=== PATIENT | female | born 1985 | race American Indian/Alaskan Native ===

== ENCOUNTER 2016-10-04 | Emergency (ER) | payer OTHER | END 2016-10-04 14:57 | disposition left against medical advice (07) | DX: Z53.21 Procedure and treatment not carried out due to patient leaving prior to being seen by health care provider (principal) ==

== ENCOUNTER 2016-12-10 18:46 | Emergency (ER) | payer OTHER ==
[2016-12-10] MEDS ORDERED: oxyCOD/ACETAMIN 5 MG/325 MG TABLET PO STA (19:48)
[2016-12-10] MEDS ORDERED: oxyCOD/ACETAMIN 5 MG/325 MG TABLET PO ONE (19:50)
== END 2016-12-10 20:00 | disposition home or self-care (01) ==
DX: S69.92XA Unspecified injury of left wrist, hand and finger(s), initial encounter (principal); S63.8X2A Sprain of other part of left wrist and hand, initial encounter; W21.07XA Struck by softball, initial encounter; Y93.64 Activity, baseball; Y92.328 Other athletic field as the place of occurrence of the external cause; J45.909 Unspecified asthma, uncomplicated
CPT/HCPCS: 73130; 99283; A9270

== ENCOUNTER 2016-12-15 15:53 | Emergency (ER) | payer OTHER ==
[2016-12-15] MEDS ORDERED: BUPIVACAINE 0.5% PF 30 ML VIAL ONE (16:08)
== END 2016-12-15 16:55 | disposition home or self-care (01) ==
DX: S61.305A Unspecified open wound of left ring finger with damage to nail, initial encounter (principal); W23.0XXA Caught, crushed, jammed, or pinched between moving objects, initial encounter; Y92.89 Other specified places as the place of occurrence of the external cause; Y99.0 Civilian activity done for income or pay; R03.0 Elevated blood-pressure reading, without diagnosis of hypertension

== ENCOUNTER 2017-01-19 16:54 | Emergency (ER) | payer OTHER | END 2017-01-19 17:52 | disposition left against medical advice (07) | DX: R10.30 Lower abdominal pain, unspecified (principal); Z53.21 Procedure and treatment not carried out due to patient leaving prior to being seen by health care provider ==

== ENCOUNTER 2017-04-05 18:15 | Emergency (ER) | payer OTHER ==
[2017-04-05 18:20] VITALS: BP 123/78
--- NOTE | 2017-04-05 18:42 | ED Physician Documentation ---
PD HPI UPPER EXT INJURY - Stated complaint Stated Complaint: HAND SWELL - Chief complaint Chief Complaint: Ext Problem - History obtained from History obtained from: Patient - History of Present Illness Location: Left, Wrist, Hand Type of injury: Other (hit by a softball last night) Where injury occurred: Home Timing - onset: Yesterday Timing - duration: Days (1) Timing - details: Abrupt onset Pain level max: 5 Pain level now: 5 Improved by: Rest Worsened by: Moving, Palpating Associated symptoms: Swelling, Discolored (bruising). No: Weakness, Numbness, Tingling Contributing factors: No: Anticoagulated, Prior ortho surgery, Prosthetic joint Similar symptoms before: Has not had sx before Recently seen: Not recently seen - Additonal information Additional information: Patient states that she was struck in the left hand by a softball while wearing a mitt yesterday and has pain today. 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: Endometriosis Other Past Medical History: pericarditis - Past Surgical History Past Surgical History: Yes General: Appendectomy Ortho: Other /TRANSMISSION ENGINEER: Hysterectomy - Present Medications Home Medications: Ambulatory Orders Medication Instructions Recorded Confirmed Estrogen 0.25 mg DAILY 12/15/16 04/05/17 - Allergies Allergies/Adverse Reactions: Allergies Allergy/AdvReac Type Severity Reaction Status Date / Time clarithromycin [From Biaxin] Allergy Rash Verified 04/05/17 18:30 ketorolac tromethamine * Allergy resp Verified 04/05/17 18:30 [From Toradol] difficulty metoclopramide HCl * Allergy Hives Verified 04/05/17 18:30 [From Reglan] morphine Allergy Hives Verified 04/05/17 18:30 naproxen Allergy resp dif Verified 04/05/17 18:30 - Social History Does the pt smoke?: No Smoking Status: Never smoker Does the pt drink ETOH?: Yes Does the pt have substance abuse?: No - Immunizations Immunizations are current?: Yes - POLST Patient has POLST: No PD ED PE NORMAL - Vitals Vital signs reviewed: Yes - General General: Alert and oriented X 3, No acute distress - Derm Derm: Warm and dry - Extremities Extremities: Other (L hand - TTP over thenar emminence. No ecchymosis or swelling. Also TTP over volar wrist. No snuffbox tenderness. NVI.) - Neuro Neuro: Alert and oriented X 3 - Psych Psych: Normal mood, Normal affect Results - Vitals Vitals: Vital Signs - 24 hr 04/05/17 18:18 Temperature 36.3 C L Heart Rate 84 Respiratory 16 Rate Blood Pressure 123/78 O2 Saturation 100 Oxygen O2 Source Room air - Rads (name of study) L wrist xray Radiology: Prelim report reviewed, EMP read contemporaneously, See rad report ( normal) PD MEDICAL DECISION MAKING - ED course Complexity details: reviewed results, re-evaluated patient, considered differential, d/w patient ED course: Patient presents to the emergency department with what appears to be hand and wrist contusion. Normal examination other than tenderness. No acute findings on x-ray. Placed in a thumb spica for comfort given her thenar eminence tenderness. Will use Tylenol as needed for pain. Patient counseled regarding signs and symptoms for which I believe and urgent re-evaluation would be necessary. Patient with good understanding of and agreement to plan and is comfortable going home at this time This document was made in part using voice recognition software. While efforts are made to proofread this document, sound alike and grammatical errors may occur. Departure - Departure Disposition: 01 Home, Self Care Clinical Impression: Contusion of hand Qualifiers: Encounter type: initial encounter Laterality: left Qualified Code(s): S60.222A - Contusion of left hand, initial encounter Condition: Good Instructions: ED Contusion Hand Follow-Up: IVANNA DIAMOND [Primary Care Provider] - Within 1 week Comments: You can use motrin or tylenol as needed for pain at home. Return if you worsen. Wear the splint for comfort. Discharge Date/Time: 04/05/17 20:38
[2017-04-05] MEDS ORDERED: ACETAMINOPHEN 325 MG TABLET PO STA (19:24)
[2017-04-05] MEDS ORDERED: ACETAMINOPHEN 325 MG TABLET PO ONE (19:27)
--- NOTE | 2017-04-05 19:37 | XRAY Preliminary Report ---
Exam: XR Wrist 4 View LT IMPRESSION: Normal wrist radiography. [facility] SITE ID: [id number]
--- NOTE | 2017-04-05 20:02 | XRAY Report ---
EXAM: LEFT WRIST RADIOGRAPHY EXAM DATE: 04/05/2017 06:48 p.m. CLINICAL HISTORY: Struck by softball last night. Distal radial as well as scaphoid pain. COMPARISON: Left hand 12/10/2016. TECHNIQUE: 4 views. FINDINGS: Bones: Normal. No fractures or bone lesions. Joints: Normal. No subluxations. Soft Tissues: Normal. No soft tissue swelling. IMPRESSION: Normal wrist radiography. [facility] Referring Provider Line: [phone] SITE ID: [id number]
== END 2017-04-05 20:38 | disposition home or self-care (01) ==
LOC: ED 18:15
DX: S60.222A Contusion of left hand, initial encounter (principal); W21.03XA Struck by baseball, initial encounter; Y92.320 Baseball field as the place of occurrence of the external cause; J45.909 Unspecified asthma, uncomplicated
CPT/HCPCS: 29125; 73110; 99282; 99283; A9270

== ENCOUNTER 2017-06-18 13:07 | Emergency (ER) | payer OTHER ==
[2017-06-18] MEDS ORDERED: ACETAMINOPHEN 1,000 MG/100 ML 100 ML IV STA (15:14)
[2017-06-18] MEDS ORDERED: PROCHLORPERAZINE 10 MG/2 ML VIAL IVP STA (15:14)
[2017-06-18] MEDS ORDERED: diphenhydrAMINE INJ 50 MG/ML VIAL IVP STA ×2 (15:14→16:48)
[2017-06-18] MEDS ORDERED: SODIUM CHLORIDE 0.9% 1,000 ML IV ONE (15:14)
[2017-06-18] MEDS ORDERED: diphenhydrAMINE INJ 50 MG/ML VIAL ONE ×2 (15:23→16:56)
[2017-06-18] MEDS ORDERED: SODIUM CHLORIDE FLUSH 0.9% 10 ML SYRINGE IVP ONE (15:23)
[2017-06-18] MEDS ORDERED: PROCHLORPERAZINE 10 MG/2 ML VIAL ONE (15:23)
[2017-06-18] MEDS ORDERED: ACETAMINOPHEN 1,000 MG/100 ML 100 ML IV ONE (15:23)
--- NOTE | 2017-06-18 16:12 | ED Physician Documentation ---
History of Present Illness - Stated complaint Stated Complaint: MIGRAINE - Chief complaint Chief Complaint: Neuro - Additonal information Additional information: hx from pt 31 f hx migraines has a migraine similar to prior migraines R sided, photophobia NV no fever no neck stiffness no numbness or weakness denies preg Review of Systems Constitutional: denies: Fever, Chills GI: reports: Nausea, Vomiting. denies: Abdominal Pain : reports: Hysterectomy Musculoskeletal: denies: Neck pain, Back pain Neurologic: reports: Headache. 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 - Past Surgical History Past Surgical History: Yes General: Appendectomy Ortho: Other /INTELLIGENCE CLERK: Hysterectomy - Present Medications Home Medications: Ambulatory Orders Medication Instructions Recorded Confirmed Estrogen 0.25 mg DAILY 12/15/16 06/18/17 - Allergies Allergies/Adverse Reactions: Allergies Allergy/AdvReac Type Severity Reaction Status Date / Time clarithromycin [From Biaxin] Allergy Rash Verified 04/05/17 18:30 ketorolac tromethamine * Allergy resp Verified 04/05/17 18:30 [From Toradol] difficulty metoclopramide HCl * Allergy Hives Verified 04/05/17 18:30 [From Reglan] morphine Allergy Hives Verified 04/05/17 18:30 naproxen Allergy resp dif Verified 04/05/17 18:30 - Social History Does the pt smoke?: No Smoking Status: Never smoker Does the pt drink ETOH?: Yes Does the pt have substance abuse?: No - Immunizations Immunizations are current?: Yes - POLST Patient has POLST: No PD ED PE NORMAL - Vitals Vital signs reviewed: Yes - General General: Alert and oriented X 3 - HEENT HEENT: PERRL (photophobic, light caused vomiting), EOMI, Other (no TA TTP, globes soft) - Neck Neck: Supple, no meningeal sign - Cardiac Cardiac: RRR - Respiratory Respiratory: No respiratory distress, Clear bilaterally - Abdomen Abdomen: Soft, Non tender - Derm Derm: Normal color - Neuro Neuro: Alert and oriented X 3, body recall instructor 2-12 intact, No motor deficit, No sensory deficit, Normal speech Results - Vitals Vitals: Vital Signs - 24 hr 06/18/17 06/18/17 06/18/17 13:18 16:21 18:11 Temperature 36.6 C 37.0 C Heart Rate 109 H 95 81 Respiratory 17 15 13 Rate Blood Pressure 133/90 H 109/58 L 132/69 H O2 Saturation 99 98 97 Oxygen O2 Source Room air PD MEDICAL DECISION MAKING - ED course ED course: pt txed with ofirmev compazine benadryl and ativan + IVF and felt better Departure - Departure Disposition: 01 Home, Self Care Clinical Impression: Migraine Qualifiers: Migraine type: other Status migrainosus presence: without status migrainosus Intractability: not intractable Qualified Code(s): G43.809 - Other migraine, not intractable, without status migrainosus Instructions: ED Headache Migraine Follow-Up: IVANNA DIAMOND [Primary Care Provider] - (to recheck your blood pressure - it was high today) Forms: Activity restrictions
[2017-06-18] MEDS ORDERED: LORazepam 2 MG/ML SYRINGE IVP STA (16:48)
[2017-06-18] MEDS ORDERED: LORazepam 2 MG/ML SYRINGE ONE (16:56)
[2017-06-18 18:12] VITALS: BP 132/69
== END 2017-06-18 18:25 | disposition home or self-care (01) ==
LOC: ED 13:07
DX: G43.809 Other migraine, not intractable, without status migrainosus (principal); R03.0 Elevated blood-pressure reading, without diagnosis of hypertension
CPT/HCPCS: 96374; 96375; 96376; 99283; 99284; J0131; J2060

== ENCOUNTER 2017-11-20 07:48 | Outpatient (CLI) | payer OTHER ==
--- NOTE | 2017-11-20 13:13 | MRI Preliminary Report ---
Exam: MRI ANKLE RT W/O IMPRESSION: 1. Increased susceptibility artifact at the distal fibula mildly limits evaluation of the region. 2. Moderate peroneus longus and brevis tendinopathy. Mild distortion, irregularity, and subtle hyperi ntense signal at the peroneus brevis tendon distal to the fibular tip may be postsurgical versus smal l partial thickness tear. 3. Mild thickening of the anterior and posterior talofibular ligaments, similar and likely due to old trauma. 4. Calcaneofibular ligament obscured by artifact. Mild thickening of the distal portion is similar to previous. 5. Minimal tibiotalar and subtalar joint fusions. [facility] SITE ID: [id number]
--- NOTE | 2017-11-20 17:47 | MRI Report ---
EXAM: RIGHT ANKLE/HINDFOOT MRI WITHOUT CONTRAST EXAM DATE: 11/20/2017 08:35 AM. CLINICAL HISTORY: Pain in unspecified ankle and joints of unspecified. COMPARISON: None. TECHNIQUE: Multiplanar, multisequence T1-weighted and fluid-sensitive sequences of the ankle/hindfoot without contrast. Other: None. FINDINGS: Bones: Foci of susceptibility artifact at the distal fibula increased from previous. This mildly limi ts evaluation of the region. Mild flattening again noted at the posterior aspect distal fibula. No fracture or bone lesion. Articular Cartilage: Unremarkable. Ligaments: Anterior and posterior tibiofibular ligaments are intact. Mild thickening at the anterior and posterior talofibular ligaments, similar. Evaluation of the calcaneofibular ligament mildly limit ed due to susceptibility artifact. Mild thickening of the distal fibers partially visualized. The deep and superficial deltoid and spring ligaments are intact. Anterior Tendons: The tibialis anterior, extensor hallucis longus, and extensor digitorum longus tend ons are unremarkable. Medial Tendons: The tibialis posterior, flexor digitorum longus, and flexor hallucis longus tendons a re unremarkable. Lateral Tendons: Moderate thickening of the peroneus longus and brevis tendons at the fibular tip, in creased from previous. Mild distortion and irregularity of the peroneus longus brevis with ill-define d hyperintense signal along the posterior aspect of the central fibers involving a region measuring 1 cm in length (axial images 17). Small amount of fluid in the tendon sheath. Achilles Tendon: The Achilles tendon is unremarkable. Musculature: No edema or fatty atrophy. Other: Minimal tibiotalar and subtalar joint effusions. The contents of the sinus tarsi and tarsal tu nnel are unremarkable. No plantar fasciitis. The subcutaneous tissues are unremarkable. IMPRESSION: 1. Increased susceptibility artifact at the distal fibula mildly limits evaluation of the region. 2. Moderate peroneus longus and brevis tendinopathy. Mild distortion, irregularity, and subtle hyperi ntense signal at the peroneus brevis tendon distal to the fibular tip may be postsurgical versus smal l partial-thickness tear. 3. Mild thickening of the anterior and posterior talofibular ligaments, similar and likely due to old trauma. 4. Calcaneofibular ligament obscured by artifact. Mild thickening of the distal portion is similar to previous. 5. Minimal tibiotalar and subtalar joint effusions. [facility] Referring Provider Line: [phone] SITE ID: [id number]
== END 2017-11-20 07:49 | disposition home or self-care (01) ==
LOC: DI 07:48
PROVIDERS: ATTEND Physician Assistant Medical
DX: M67.971 Unspecified disorder of synovium and tendon, right ankle and foot (principal); M25.471 Effusion, right ankle

== ENCOUNTER 2017-12-05 19:06 | Emergency (ER) | payer OTHER ==
--- NOTE | 2017-12-05 21:02 | ED Physician Documentation ---
PD HPI URI - Stated complaint Stated Complaint: SORE THROAT - Chief complaint Chief Complaint: Heent - History obtained from History obtained from: Patient - History of Present Illness Timing - onset: Yesterday Timing duration: Days (1-2) Timing details: Abrupt onset, Still present Associated symptoms: Nasal congestion, Sore throat, Swollen nodes. No: Fever, Chest pain, Dyspnea, NVD Recently seen: Not recently seen Review of Systems Constitutional: reports: Chills, Myalgias. 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 - Past Surgical History Past Surgical History: Yes General: Appendectomy Ortho: Other /SENIOR BRANCH MANAGER: Hysterectomy - Present Medications Home Medications: Ambulatory Orders Medication Instructions Recorded Confirmed Estrogen 0.25 mg PO DAILY 12/15/16 06/18/17 Dexamethasone [Decadron] 4 mg PO DAILY #5 tablet 12/05/17 Tramadol HCl 50 mg PO Q6H PRN #15 tablet 12/05/17 - Allergies Allergies/Adverse Reactions: Allergies Allergy/AdvReac Type Severity Reaction Status Date / Time clarithromycin [From Biaxin] Allergy Rash Verified 12/05/17 19:19 ketorolac tromethamine * Allergy resp Verified 12/05/17 19:19 [From Toradol] difficulty metoclopramide HCl * Allergy Hives Verified 12/05/17 19:19 [From Reglan] morphine Allergy Hives Verified 12/05/17 19:19 naproxen Allergy resp dif Verified 12/05/17 19:19 - Social History Does the pt smoke?: No Smoking Status: Never smoker Does the pt drink ETOH?: Yes Does the pt have substance abuse?: No - Immunizations Immunizations are current?: Yes - POLST Patient has POLST: No PD ED PE NORMAL - Vitals Vital signs reviewed: Yes - General General: Alert and oriented X 3, No acute distress, Well developed/nourished - HEENT HEENT: Pharynx benign (minimal redness in pharynx without exudate nor peritonsillar swelling. ) - Neck Neck: Supple, no meningeal sign, No adenopathy - Cardiac Cardiac: RRR, No murmur - Respiratory Respiratory: Clear bilaterally - Abdomen Abdomen: Soft, Non tender - Derm Derm: Normal color, Warm and dry - Neuro Neuro: Alert and oriented X 3, No motor deficit, Normal speech Results - Vitals Vitals: Oxygen O2 Source Room air - Labs Labs: Microbiology 12/05/17 21:00 Group A Strep Throat Culture - Final Throat MIXED OROPHARYNGEAL AVELINA PRESENT. NO BETA STREP PRESENT IN CULTURE. Laboratory Tests 12/05/17 21:00 Group A Strep Rapid Negative PD MEDICAL DECISION MAKING - ED course Complexity details: reviewed results, considered differential (low Centor score and negative rapid strep. Appears viral. ), d/w patient Departure - Departure Disposition: Home, Self Care Clinical Impression: Viral pharyngitis Condition: Stable Record reviewed to determine appropriate education?: Yes Instructions: ED Pharyngitis Viral Follow-Up: CHIKIS CASTANO PA-C [Primary Care Provider] - Prescriptions: Dexamethasone [Decadron] 4 mg PO DAILY #5 tablet Tramadol HCl 50 mg PO Q6H PRN #15 tablet PRN Reason: Pain Comments: Your rapid strep test is negative. It does not look suspicious enough for strep at this point so we will await cultures to see more definitively if it is strep. The rapid strep test is about 85-90% accurate. Meanwhile we will presume a viral illness and use Tylenol or ibuprofen if needed for pains. Decadron anti-inflammatory daily for 5 more days. Add pain medicine if needed. Drink lots of fluids. Presumably this will last about 5 or 6 days if it is a viral illness. Discharge Date/Time: 12/05/17 21:38
[2017-12-05] MEDS ORDERED: HYDROcod/ACET 5/325 Prepack 6 PO STA (21:24)
[2017-12-05] MEDS ORDERED: ACETAMINOPHEN 325 MG TABLET PO STA (21:24)
[2017-12-05] MEDS ORDERED: DEXAMETHASONE 10 MG/ML VIAL PO STA (21:24)
[2017-12-05 21:41] VITALS: BP 126/87
== END 2017-12-05 21:38 | disposition home or self-care (01) ==
LOC: ED 19:06
DX: J02.8 Acute pharyngitis due to other specified organisms (principal); B97.89 Other viral agents as the cause of diseases classified elsewhere
CPT/HCPCS: 87070; 87430; 99283; A9270

== ENCOUNTER 2018-09-10 21:06 | Emergency (ER) | payer OTHER ==
--- NOTE | 2018-09-10 22:18 | ED Physician Documentation ---
PD HPI CHEST PAIN - Stated complaint Stated Complaint: CP/L ARM TINGLING - Chief complaint Chief Complaint: General - History obtained from History obtained from: Patient - History of Present Illness Timing - onset: Today (this morning) Timing - onset during: Rest (at work but at rest) Timing - details: Intermittant Pain level now: 0 Quality: Aching, Pain Location: Substernal Radiation: Left upper extremity Improved by: Nothing Worsened by: Other (no exacerbating factors) Associated symptoms: Nausea. No: Shortness of air, Diaphoresis, Vomiting, Palpitations Similar symptoms before: Has not had sx before Recently seen: Not recently seen - Additional information Additional information: c/o chest pain, intermittent/episodic since this morning while at work. No apparent inciting, exacerbating, or ameliorating factors. This evening, the episodes began radiating to LUE. She says she has had similar episodes in the past and was told she had pericarditis. Review of Systems Constitutional: denies: Fever Cardiac: reports: Chest pain / pressure. denies: Palpitations, Pedal edema, Calf pain Respiratory: denies: Dyspnea GI: reports: Nausea. 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 : None HEENT: None Psych: None Musculoskeletal: None Derm: None - Past Surgical History Past Surgical History: Yes General: Appendectomy Ortho: Other /AUTOMOBILE DRIVERS: Hysterectomy HEENT: Tonsil/Adenoidectomy - Present Medications Home Medications: Ambulatory Orders Medication Instructions Recorded Confirmed Estrogen 0.25 mg PO DAILY 12/15/16 06/18/17 Dexamethasone [Decadron] 4 mg PO DAILY #5 tablet 12/05/17 Tramadol HCl 50 mg PO Q6H PRN #15 tablet 12/05/17 - Allergies Allergies/Adverse Reactions: Allergies Allergy/AdvReac Type Severity Reaction Status Date / Time clarithromycin [From Biaxin] Allergy Rash Verified 09/10/18 21:12 ketorolac tromethamine * Allergy resp Verified 09/10/18 21:12 [From Toradol] difficulty metoclopramide HCl * Allergy Hives Verified 09/10/18 21:12 [From Reglan] morphine Allergy Hives Verified 09/10/18 21:12 naproxen Allergy resp dif Verified 09/10/18 21:12 - Social History Does the pt smoke?: No Smoking Status: Never smoker Does the pt drink ETOH?: Yes Does the pt have substance abuse?: No - Immunizations Immunizations are current?: Yes - POLST Patient has POLST: No PD ED PE NORMAL - Vitals Vital signs reviewed: Yes - General General: Alert and oriented X 3, No acute distress, Well developed/nourished - HEENT HEENT: Moist mucous membranes - Neck Neck: Supple, no meningeal sign - Cardiac Cardiac: RRR, No murmur, No gallop, No rub - Respiratory Respiratory: No respiratory distress, Clear bilaterally - Extremities Extremities: No edema Results - Vitals Vitals: Vital Signs - 24 hr 09/10/18 09/10/18 21:09 23:24 Temperature 36.5 C Heart Rate 89 75 Respiratory 16 13 Rate Blood Pressure 150/86 H 120/87 H O2 Saturation 100 99 Oxygen O2 Source Room air - EKG (time done) No standard instances Rate: Rate (enter#) (79) Rhythm: NSR [place]: Normal Intervals: Normal [place] QRS: Normal Ischemia: Normal ST segments - Labs Labs: Laboratory Tests 09/10/18 09/10/18 09/10/18 22:39 22:39 22:39 WBC 5.7 RBC 4.26 Hgb 12.9 Hct 37.9 MCV 89.0 MCH 30.2 MCHC 33.9 RDW 12.4 Plt Count 160 MPV 8.9 Neut # (Auto) 3.2 Lymph # (Auto) 1.9 [place] # (Auto) 0.5 Eos # (Auto) 0.1 Baso # (Auto) 0.0 Absolute Nucleated RBC 0.00 Nucleated RBC % 0.0 ESR 10 Sodium 134 L Potassium 3.5 Chloride 105 Carbon Dioxide 24 Anion Gap 5.0 L BUN 12 Creatinine 0.5 Estimated GFR (MDRD) 142 Glucose 97 Calcium 8.9 Total Creatine Kinase 35 CK-MB (CK-2) Troponin I 09/10/18 22:39 WBC RBC Hgb Hct MCV MCH MCHC RDW Plt Count MPV Neut # (Auto) Lymph # (Auto) [place] # (Auto) Eos # (Auto) Baso # (Auto) Absolute Nucleated RBC Nucleated RBC % ESR Sodium Potassium Chloride Carbon Dioxide Anion Gap BUN Creatinine Estimated GFR (MDRD) Glucose Calcium Total Creatine Kinase CK-MB (CK-2) 0.5 L Troponin I < 0.04 PD MEDICAL DECISION MAKING - ED course Complexity details: reviewed results, re-evaluated patient, considered differential, d/w patient Departure - Departure Disposition: 01 Home, Self Care Clinical Impression: Chest pain Condition: Good Instructions: ED Chest Pain Atypical Unkn Cause Follow-Up: CHIKIS CASTANO PA-C [Primary Care Provider] - Discharge Date/Time: 09/11/18 00:00
[2018-09-10 22:44] LABS: BASOPHILS % (AUTO) 0.5 %; EOSINOPHILS # (AUTO) 0.1 10^3/uL (0.0-0.7); EOSINOPHILS % (AUTO) 2.3 %; HGB - HEMOGLOBIN 12.9 g/dL (12.0-16.0); LYMPHOCYTES # (AUTO) 1.9 10^3/uL (1.5-3.5); LYMPHOCYTES % (AUTO) 33.2 %; MEAN CORPUSCULAR HEMOGLOBIN 30.2 pg (27.0-31.0); MEAN CORPUSCULAR HGB CONC 33.9 g/dL (32.0-36.0); MEAN PLATELET VOLUME 8.9 fL (7.9-10.8); MONOCYTES # (AUTO) 0.5 10^3/uL (0.0-1.0); MONOCYTES % (AUTO) 8.2 %; NEUTROPHILS # (AUTO) 3.2 10^3/uL (1.5-6.6); NEUTROPHILS % (AUTO) 55.8 %; PLT - PLATELET COUNT 160 10^3/uL (130-450); RED BLOOD COUNT 4.26 10^6/uL (4.20-5.40); RED CELL DISTRIBUTION WIDTH 12.4 % (12.0-15.0); WHITE BLOOD COUNT 5.7 x10^3/uL (4.8-10.8)
[2018-09-10 22:55] LABS: CALCIUM 8.9 mg/dL (8.5-10.3); CREATININE 0.5 mg/dL (0.4-1.0)
[2018-09-10 23:01] LABS: TROPONIN I < 0.04 ng/mL (<0.49)
[2018-09-10 23:03] LABS: CREATINE KINASE MB 0.5 ng/mL (0.6-6.3)
[2018-09-10 23:25] VITALS: BP 120/87
== END 2018-09-11 | disposition home or self-care (01) ==
LOC: ED 21:06
DX: R07.9 Chest pain, unspecified (principal)
CPT/HCPCS: 36415; 80048; 82550; 82553; 84484; 85025; 85651; 93005; 99283

== ENCOUNTER 2019-01-01 22:24 | Emergency (ER) | payer OTHER ==
--- NOTE | 2019-01-01 22:36 | ED Physician Documentation ---
PD HPI HEAD INJURY - Stated complaint Stated Complaint: JAW PX - Chief complaint Chief Complaint: Laceration - History obtained from History obtained from: Patient - History of Present Illness Mechanism of head injury: Fell (struck chin on bed post and had hyperextension of the neck. Pain in mandible and hurts to open mouth. Denies malalignment of the teeth. Also has pain in neck as it was hyperextended with the impact. No focal weakness nor numbness.) Where head injury occurred: Home Timing - onset: How many hours ago (1), Today Location of injury: Front (chin, with small laceration there) Quality of pain: Pain (mandible, lateral jaw and neck) Associated symptoms: No: LOC, AMS, Nausea / vomiting Symptoms worsen with: Movement Similar symptoms before: Has not had sx before Recently seen: Not recently seen Review of Systems Throat: denies: Dental pain / toothache, Sore throat Cardiac: denies: Chest pain / pressure, Palpitations GI: denies: Abdominal Pain, Nausea, Vomiting Skin: reports: Laceration (s) (chin) Musculoskeletal: reports: Neck pain. denies: Back pain Neurologic: denies: Focal weakness, Numbness, Altered mental status PD PAST MEDICAL HISTORY - Past Medical History Cardiovascular: Other Respiratory: Asthma, Shortness of breath Neuro: Migraines Endocrine/Autoimmune: None GI: None ACCOUNTING SYSTEMS ANALYST: Endometriosis : None HEENT: None Psych: None Musculoskeletal: None Derm: None - Past Surgical History Past Surgical History: Yes General: Appendectomy Ortho: Other /ACCOUNTING SYSTEMS ANALYST: Hysterectomy HEENT: Tonsil/Adenoidectomy - Present Medications Home Medications: Ambulatory Orders Medication Instructions Recorded Confirmed Estrogen 0.25 mg PO DAILY 12/15/16 06/18/17 Dexamethasone [Decadron] 4 mg PO DAILY #5 tablet 12/05/17 Tramadol HCl 50 mg PO Q6H PRN #15 tablet 12/05/17 Naproxen 500 mg PO BID #20 tablet 01/02/19 Oxycodone HCl/Acetaminophen 1 - 2 each PO Q6H PRN #14 tablet 01/02/19 [Percocet 5-325 mg Tablet] - Allergies Allergies/Adverse Reactions: Allergies Allergy/AdvReac Type Severity Reaction Status Date / Time clarithromycin [From Biaxin] Allergy Rash Verified 01/01/19 22:33 ketorolac tromethamine * Allergy resp Verified 01/01/19 22:33 [From Toradol] difficulty metoclopramide HCl * Allergy Hives Verified 01/01/19 22:33 [From Reglan] morphine Allergy Hives Verified 01/01/19 22:33 naproxen Allergy resp dif Verified 01/01/19 22:33 - Social History Does the pt smoke?: No Smoking Status: Never smoker Does the pt drink ETOH?: Yes Does the pt have substance abuse?: No - Immunizations Immunizations are current?: Yes - POLST Patient has POLST: No PD ED PE NORMAL - Vitals Vital signs reviewed: Yes - General General: Alert and oriented X 3, Well developed/nourished, Other (She appears in pain and is having minimal range of motion of the jaw due to pain. She denies malalignment. There is no dental fractures. There is a small 1 cm laceration on the underside of the chin with edges close together. No foreign body is seen. There is no active bleeding. There is tenderness at the mental area of the jaw and chin. There is no tenderness at the TMJ areas per se. The corner of the mandible and the condylar areas are somewhat tender. The maxillary part of the feet face is not tender. The neck shows some tenderness in the mid to lower cervical area close to midline.) - HEENT HEENT: Dentition benign - Neck Neck: Supple, no meningeal sign - Derm Derm: Normal color, Warm and dry - Neuro Neuro: Alert and oriented X 3, No motor deficit, No sensory deficit, Normal speech Results - Vitals Vitals: Vital Signs - 24 hr 01/01/19 01/02/19 22:30 00:39 Temperature 36.8 C 36.5 C Heart Rate 76 71 Respiratory 17 15 Rate Blood Pressure 148/88 H 121/74 O2 Saturation 100 98 Oxygen O2 Source Room air - Rads (name of study) maxilofacial and cervical CTs Radiology: Prelim report reviewed (no fractures. ), EMP read contemporaneously, See rad report PD MEDICAL DECISION MAKING - ED course Complexity details: reviewed results (maxilofacial CT and cervical CT without fractures.), considered differential, d/w patient Departure - Departure Disposition: 01 Home, Self Care Clinical Impression: Chin laceration Qualifiers: Encounter type: initial encounter Qualified Code(s): S01.81XA - Laceration without foreign body of other part of head, initial encounter Facial contusion Qualifiers: Encounter type: initial encounter Qualified Code(s): S00.83XA - Contusion of other part of head, initial encounter Cervical strain, acute Qualifiers: Encounter type: initial encounter Qualified Code(s): S16.1XXA - Strain of muscle, fascia and tendon at neck level, initial encounter Condition: Stable Record reviewed to determine appropriate education?: Yes Instructions: ED Contusion Face Prescriptions: Naproxen 500 mg PO BID #20 tablet Oxycodone HCl/Acetaminophen [Percocet 5-325 mg Tablet] 1 - 2 each PO Q6H PRN #14 tablet PRN Reason: pain Comments: Soft food and chewing for couple of days until improved. I would anticipate improvement over several days to a week at most. Use some anti-inflammatories such as naproxen or ibuprofen twice daily. Add Tylenol or Percocet if needed for pain. Again recheck if not improving over several days to week. There are no fractures seen on imaging.Allow the Steri-Strips to fall off the on their own from the chin after several days and then just clean it with soap and water and use ointment. Discharge Date/Time: 01/02/19 00:39
[2019-01-01] MEDS: HYDROmorphone 1 MG/ML CARPUJECT IM STA (22:59)
[2019-01-02] MEDS: oxyCODONE/ACET 5/325 Prepack 4 PO STA (00:14)
--- NOTE | 2019-01-02 00:24 | CT Report ---
Reason: fall and struck chin, with neck pain Procedure Date: 01/01/2019 Accession Number: [id number] / [id number] Procedure: CT - CERVICAL SPINE WO CPT Code: FULL RESULT: EXAM: CT CERVICAL SPINE WITHOUT CONTRAST DATE: 01/01/2019 11:29 PM. HISTORY: Fall and struck chin, with neck pain. COMPARISONS: None. TECHNIQUE: Thin-section axial images were acquired of the cervical spine without contrast. Post-processing: Coronal and sagittal reformats. Other: None. In accordance with CT protocol optimization, one or more of the following dose reduction techniques were utilized for this exam: automated exposure control, adjustment of mA and/or KV based on patient size, or use of iterative reconstructive technique. FINDINGS: Alignment: No scoliosis or spondylolisthesis. Bones: No fracture or bone lesion. Interspace Levels/Facets: C1-C2: Unremarkable. C2-C3: Unremarkable. C3-C4: Unremarkable. C4-C5: Unremarkable. C5-C6: Unremarkable. C6-C7: Unremarkable. C7-T1: Unremarkable. Musculature: Normal. No fatty atrophy. Other: The paravertebral and prevertebral soft tissues are unremarkable. The lung apices are clear. IMPRESSION: Normal cervical spine CT. RADIA
--- NOTE | 2019-01-02 00:25 | CT Report ---
Reason: fell and struck chin, pain in jaw Procedure Date: 01/01/2019 Accession Number: [id number] / [id number] Procedure: CT - MAXILLOFACIAL WO CPT Code: FULL RESULT: EXAM: CT MAXILLOFACIAL WITHOUT CONTRAST EXAM DATE: 01/01/2019 11:26 PM. CLINICAL HISTORY: Fell and struck chin, pain in jaw. COMPARISONS: None. TECHNIQUE: Thin-section axial images were acquired of the face without contrast. Post-processing: Coronal and sagittal reformats. Other: None. In accordance with CT protocol optimization, one or more of the following dose reduction techniques were utilized for this exam: automated exposure control, adjustment of mA and/or KV based on patient size, or use of iterative reconstructive technique. FINDINGS: Soft Tissue: The infratemporal fossa and parapharyngeal spaces are unremarkable. Orbits: Symmetric and unremarkable. Bones: No fracture or bone lesion. Temporomandibular Joints: The temporomandibular joints are symmetric and normally located. Sinuses: Normal. No mucosal thickening or fluid levels. Other: None. IMPRESSION: Normal maxillofacial CT. RADIA
[2019-01-02 00:39] VITALS: BP 121/74
== END 2019-01-02 00:39 | disposition home or self-care (01) ==
LOC: ED 22:24
DX: S01.81XA Laceration without foreign body of other part of head, initial encounter (principal); S16.1XXA Strain of muscle, fascia and tendon at neck level, initial encounter; W18.30XA Fall on same level, unspecified, initial encounter; W22.09XA Striking against other stationary object, initial encounter; Y92.009 Unspecified place in unspecified non-institutional (private) residence as the place of occurrence of the external cause
CPT/HCPCS: 70486; 72125; 96372; 99283

== ENCOUNTER 2019-06-30 13:25 | Emergency (ER) | payer OTHER ==
[2019-06-30 13:34] VITALS: BP 136/89
--- NOTE | 2019-06-30 14:07 | ED Physician Documentation ---
PD HPI UPPER EXT INJURY - Stated complaint Stated Complaint: ARM PX/GLF - Chief complaint Chief Complaint: Ext Problem - History obtained from History obtained from: Patient - History of Present Illness Location: Right, Shoulder Type of injury: Fall Where injury occurred: Home Timing - onset: Yesterday Timing - details: Gradual onset Pain level max: 9 Pain level now: 9 Improved by: Rest, Ice, Immobilization Worsened by: Moving, Palpating Associated symptoms: No: Weakness, Numbness, Tingling Similar symptoms before: Has not had sx before Recently seen: Not recently seen Review of Systems Constitutional: denies: Fever, Chills GI: denies: Vomiting : denies: Now EGA Skin: denies: Rash Musculoskeletal: denies: Neck pain, Back pain Neurologic: denies: Head injury PD PAST MEDICAL HISTORY - Past Medical History Past Medical History: Yes Cardiovascular: Other Respiratory: Asthma, Shortness of breath Neuro: Migraines Endocrine/Autoimmune: None GI: None MEDICAL TECHNICAL WRITER: Endometriosis : None HEENT: None Psych: None Musculoskeletal: None Derm: None - Past Surgical History Past Surgical History: Yes General: Appendectomy Ortho: Other /MEDICAL TECHNICAL WRITER: Hysterectomy HEENT: Tonsil/Adenoidectomy - Present Medications Home Medications: Ambulatory Orders Medication Instructions Recorded Confirmed Estrogen 0.25 mg PO DAILY 12/15/16 06/18/17 Cyclobenzaprine [Flexeril] 10 mg PO TID PRN #20 tablet 06/30/19 Oxycodone HCl/Acetaminophen 1 - 2 each PO Q6H PRN #14 tablet 06/30/19 [Percocet 5-325 mg Tablet] - Allergies Allergies/Adverse Reactions: Allergies Allergy/AdvReac Type Severity Reaction Status Date / Time clarithromycin [From Biaxin] Allergy Rash Verified 06/30/19 13:51 ketorolac tromethamine * Allergy resp Verified 06/30/19 13:51 [From Toradol] difficulty metoclopramide HCl * Allergy Hives Verified 06/30/19 13:51 [From Reglan] morphine Allergy Hives Verified 06/30/19 13:51 naproxen Allergy resp dif Verified 06/30/19 13:51 - Social History Does the pt smoke?: No Smoking Status: Never smoker Does the pt drink ETOH?: Yes Does the pt have substance abuse?: No - Immunizations Immunizations are current?: Yes - POLST Patient has POLST: No PD ED PE NORMAL - Vitals Vital signs reviewed: Yes - General General: Alert and oriented X 3, No acute distress - HEENT HEENT: Moist mucous membranes - Neck Neck: Supple, no meningeal sign, No bony TTP - Derm Derm: Warm and dry - Extremities Extremities: Other (Diffuse tenderness about the rotator cuff of the right shoulder. Neurovascularly intact. Pain with external rotation. Feels better with internal rotation. Pain with abduction as well.) - Neuro Neuro: Alert and oriented X 3 Results - Vitals Vitals: Vital Signs - 24 hr 06/30/19 13:31 Temperature 36.4 C L Heart Rate 78 Respiratory 18 Rate Blood Pressure 136/89 H O2 Saturation 100 Oxygen O2 Source Room air - Rads (name of study) Right shoulder x-ray Radiology: Prelim report reviewed, EMP read contemporaneously, See rad report (Normal) PD MEDICAL DECISION MAKING - ED course Complexity details: reviewed results, re-evaluated patient, considered differential, d/w patient ED course: 33-year-old female with what appears to be a right shoulder injury, likely rotator cuff injury. Will continue gentle stretching. Will have her placed on muscle relaxants and pain medication. Placed in a sling for comfort. Patient counseled regarding signs and symptoms for which I believe and urgent re- evaluation would be necessary. Patient with good understanding of and agreement to plan and is comfortable going home at this time This document was made in part using voice recognition software. While efforts are made to proofread this document, sound alike and grammatical errors may occur. Departure - Departure Disposition: 01 Home, Self Care Clinical Impression: Rotator cuff (capsule) sprain Qualifiers: Encounter type: initial encounter Laterality: right Qualified Code(s): S43.421A - Sprain of right rotator cuff capsule, initial encounter Condition: Good Instructions: ED Tendinitis Rotator Cuff Follow-Up: your,doctor in 1 week [Other] Prescriptions: Cyclobenzaprine [Flexeril] 10 mg PO TID PRN #20 tablet PRN Reason: Spasms Oxycodone HCl/Acetaminophen [Percocet 5-325 mg Tablet] 1 - 2 each PO Q6H PRN #14 tablet PRN Reason: pain Comments: Return if you worsen. Continue stretching as we discussed today. You can try a shoulder brace as well as this may help your pain. Follow up with your doctor for further care. Do not drink alcohol or drive while on narcotic pain medicine. Note that many narcotic pain relievers also contain tylenol/acetaminophen. Please ensure that your total dose of acetaminophen from all sources does not exceed 3 grams (3000mg) per day. You may constipated on this medication, take a stool softener such as "Colace" twice a day while you are on it. Also recommend a gnum-gjz-wrpjcfk laxative such as senna or MiraLAX any day that you do not have a bowel movement. If you received narcotic pain medication in the emergency department, do not drive or operate machinery for the next 24 hours. Discharge Date/Time: 06/30/19 14:14
--- NOTE | 2019-06-30 14:16 | XRAY Report ---
Reason: r shoulder pain Procedure Date: 06/30/2019 Accession Number: [id number] / [id number] Procedure: XR - Shoulder 3 View RT CPT Code: FULL RESULT: EXAM: RIGHT SHOULDER RADIOGRAPHY. EXAM DATE: 06/30/2019 01:51 PM. CLINICAL HISTORY: Right shoulder pain. COMPARISON: None. TECHNIQUE: 3 views. FINDINGS: Bones: Normal. No fracture or bone lesion. Joints: The glenohumeral and acromioclavicular joints are normal. Soft tissues: The visualized hemithorax is unremarkable. No soft tissue swelling. IMPRESSION: Normal shoulder radiography. [facility]
== END 2019-06-30 14:14 | disposition home or self-care (01) ==
LOC: ED 13:25
DX: S43.421A Sprain of right rotator cuff capsule, initial encounter (principal); W01.0XXA Fall on same level from slipping, tripping and stumbling without subsequent striking against object, initial encounter; Y92.009 Unspecified place in unspecified non-institutional (private) residence as the place of occurrence of the external cause
CPT/HCPCS: 99283; 99284

== ENCOUNTER 2019-08-06 19:08 | Emergency (ER) | payer OTHER ==
[2019-08-06 20:44] LABS: BASOPHILS % (AUTO) 0.4 %; EOSINOPHILS # (AUTO) 0.1 10^3/uL (0.0-0.7); EOSINOPHILS % (AUTO) 1.4 %; HGB - HEMOGLOBIN 14.2 g/dL (12.0-16.0); MEAN CORPUSCULAR HEMOGLOBIN 30.2 pg (27.0-31.0); MEAN CORPUSCULAR HGB CONC 34.2 g/dL (32.0-36.0); MEAN CORPUSCULAR VOLUME 88.3 fL (81.0-99.0); MEAN PLATELET VOLUME 10.9 fL (7.9-10.8); MONOCYTES # (AUTO) 0.4 10^3/uL (0.0-1.0); MONOCYTES % (AUTO) 7.7 %; NEUTROPHILS # (AUTO) 3.1 10^3/uL (1.5-6.6); NEUTROPHILS % (AUTO) 55.1 %; PLT - PLATELET COUNT 192 10^3/uL (130-450); RED CELL DISTRIBUTION WIDTH 11.1 % (12.0-15.0); WHITE BLOOD COUNT 5.6 x10^3/uL (4.8-10.8)
--- NOTE | 2019-08-06 20:44 | ED Physician Documentation ---
History of Present Illness - Stated complaint Stated Complaint: SOA - Chief complaint Chief Complaint: Resp - History obtained from History obtained from: Patient - History of Present Illness Timing: How many days ago (5) Pain level max: 0 Pain level now: 0 Improved by: nothing Worsened by: nothing - Additonal information Additional information: 33 year old female with neck swelling, loss of voice. ongoing for the past 5 days or so. states feels cold as well. has had intermittent dyspnea on exertion for months. 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 : None HEENT: None Psych: None Musculoskeletal: None Derm: None - Past Surgical History Past Surgical History: Yes General: Appendectomy Ortho: Other /STRAP BUCKLER MACHINE: Hysterectomy HEENT: Tonsil/Adenoidectomy - Present Medications Home Medications: Ambulatory Orders Medication Instructions Recorded Confirmed Estrogen 0.25 mg PO DAILY 12/15/16 06/18/17 Cyclobenzaprine [Flexeril] 10 mg PO TID PRN #20 tablet 06/30/19 Oxycodone HCl/Acetaminophen 1 - 2 each PO Q6H PRN #14 tablet 06/30/19 [Percocet 5-325 mg Tablet] - Allergies Allergies/Adverse Reactions: Allergies Allergy/AdvReac Type Severity Reaction Status Date / Time clarithromycin [From Biaxin] Allergy Rash Verified 06/30/19 13:51 ketorolac tromethamine * Allergy resp Verified 06/30/19 13:51 [From Toradol] difficulty metoclopramide HCl * Allergy Hives Verified 06/30/19 13:51 [From Reglan] morphine Allergy Hives Verified 06/30/19 13:51 naproxen Allergy resp dif Verified 06/30/19 13:51 - Social History Does the pt smoke?: No Smoking Status: Never smoker Does the pt drink ETOH?: Yes Does the pt have substance abuse?: No - Immunizations Immunizations are current?: Yes - POLST Patient has POLST: No PD ED PE NORMAL - Vitals Vital signs reviewed: Yes - General General: Alert and oriented X 3, No acute distress, Well developed/nourished - HEENT HEENT: Ears normal, Moist mucous membranes, Pharynx benign - Neck Neck: Supple, no meningeal sign, Other (mild swelling, anterior neck) - Cardiac Cardiac: RRR, Strong equal pulses - Respiratory Respiratory: No respiratory distress, Clear bilaterally - Abdomen Abdomen: Soft, Non tender, Non distended - Derm Derm: Warm and dry - Extremities Extremities: No edema - Neuro Neuro: Alert and oriented X 3 - Psych Psych: Normal mood, Normal affect Results - Vitals Vitals: Vital Signs - 24 hr 08/06/19 08/06/19 08/06/19 19:16 21:13 23:04 Temperature 37.2 C 36.9 C 36.6 C Heart Rate 80 64 64 Respiratory 18 20 18 Rate Blood Pressure 141/84 H 136/93 H 108/75 O2 Saturation 100 100 100 Oxygen O2 Source Room air - Labs Labs: Laboratory Tests 08/06/19 08/06/19 08/06/19 20:37 20:37 20:37 WBC 5.6 RBC 4.70 Hgb 14.2 Hct 41.5 MCV 88.3 MCH 30.2 MCHC 34.2 RDW 11.1 L Plt Count 192 MPV 10.9 H Neut # (Auto) 3.1 Lymph # (Auto) 2.0 Mills # (Auto) 0.4 Eos # (Auto) 0.1 Baso # (Auto) 0.0 Absolute Nucleated RBC 0.00 Nucleated RBC % 0.0 Sodium 138 Potassium 4.0 Chloride 102 Carbon Dioxide 26 Anion Gap 10.0 BUN 12 Creatinine 0.6 Estimated GFR (MDRD) 114 Glucose 95 Calcium 9.5 Total Bilirubin 0.6 AST 26 ALT 23 Alkaline Phosphatase 51 Total Protein 8.0 Albumin 4.8 Globulin 3.2 Albumin/Globulin Ratio 1.5 Lipase 29 TSH 1.77 Free T4 0.95 Free T3 pg/mL 08/06/19 20:37 WBC RBC Hgb Hct MCV MCH MCHC RDW Plt Count MPV Neut # (Auto) Lymph # (Auto) Mills # (Auto) Eos # (Auto) Baso # (Auto) Absolute Nucleated RBC Nucleated RBC % Sodium Potassium Chloride Carbon Dioxide Anion Gap BUN Creatinine Estimated GFR (MDRD) Glucose Calcium Total Bilirubin AST ALT Alkaline Phosphatase Total Protein Albumin Globulin Albumin/Globulin Ratio Lipase TSH Free T4 Free T3 pg/mL 3.73 - Rads (name of study) CT soft tissue Radiology: Prelim report reviewed, EMP read contemporaneously, See rad report (1. The thyroid gland demonstrates normal size, morphology and homogeneous density. No focal lesion identified. 2. No evidence of acute pathology in the neck. No mass lesion or soft tissue abnormality is identified. ) PD MEDICAL DECISION MAKING - ED course Complexity details: reviewed results, re-evaluated patient, considered differential, d/w patient ED course: Unclear etiology of the patient's symptoms. Possible pharyngitis? Possible laryngitis. Given dexamethasone here. She is very well-appearing, nontoxic. Afebrile. No hypoxia. We will continue supportive care and have her follow-up with her doctor for further care. Patient counseled regarding signs and symptoms for which I believe and urgent re-evaluation would be necessary. Patient with good understanding of and agreement to plan and is comfortable going home at this time This document was made in part using voice recognition software. While efforts are made to proofread this document, sound alike and grammatical errors may occur. Departure - Departure Disposition: 01 Home, Self Care Clinical Impression: Laryngitis Condition: Good Instructions: ED Laryngitis Follow-Up: your,doctor in 1 week [Other] Comments: The cause of your symptoms is unclear. Your thyroid appears normal on CAT scan. Your thyroid function tests are normal. The remainder of your laboratory testing is unremarkable. We will have you follow-up with your doctor for further care.
[2019-08-06 20:55] LABS: ALBUMIN 4.8 g/dL (3.2-5.5); ALBUMIN/GLOBULIN RATIO 1.5 (1.0-2.2); BILIRUBIN,TOTAL 0.6 mg/dL (0.2-1.0); CALCIUM 9.5 mg/dL (8.5-10.3); CREATININE 0.6 mg/dL (0.4-1.0)
[2019-08-06 21:13] LABS: THYROID STIMULATING HORMONE 1.77 uIU/mL (0.34-5.60)
[2019-08-06 21:15] LABS: FREE T4 (FREE THYROXINE) 0.95 ng/dL (0.58-1.64)
[2019-08-06 23:04] VITALS: BP 108/75
--- NOTE | 2019-08-06 23:11 | CT Report ---
Reason: anterior neck swelling, thyroid? Procedure Date: 08/06/2019 Accession Number: [id number] / [id number] Procedure: CT - SOFT TISSUE NECK WO CPT Code: Final Report FULL RESULT: EXAM: CT SOFT TISSUE NECK WITHOUT CONTRAST. EXAM DATE: 08/06/2019 10:34 PM. HISTORY: Anterior neck swelling, thyroid?. COMPARISONS: None. TECHNIQUE: Routine soft tissue neck CT protocol with contrast. Reconstructions: Coronal and sagittal. IV contrast: None. In accordance with CT protocol optimization, one or more of the following dose reduction techniques were utilized for this exam: automated exposure control, adjustment of mA and/or KV based on patient size, or use of iterative reconstructive technique. FINDINGS: Evaluation is slightly limited without IV contrast. Visualized Intracranial Contents: Unremarkable. Orbits: Symmetric and unremarkable. Sinuses: Visualized paranasal sinuses and mastoid air cells are clear. Oral cavity: The visualized oral cavity is unremarkable. The floor of the mouth is symmetric. Pharynx: Pharyngeal mucosa is unremarkable. The infratemporal fossa, parapharyngeal spaces, and retropharyngeal space are unremarkable. The base of the tongue is symmetric and unremarkable. The airway is patent. Larynx: Larynx and supraglottic airway are patent without mass lesion. Vocal cords are symmetric. The visualized trachea is unremarkable. Parotid and Submandibular Glands: Symmetric and grossly unremarkable. Lymph Nodes: No enlarged lymph nodes are identified in the cervical, supraclavicular, and visualized superior mediastinal regions. Soft tissues: Soft tissues are unremarkable. No mass lesion or abnormal enhancement. Vascular Structures: Unremarkable. Thyroid Gland: The thyroid gland is normal in size measuring up to 4.3 cm in craniocaudal dimension. The thyroid is homogeneous in density and demonstrates normal morphology. No focal lesion is identified. Lung: The visualized lung apices are clear. Bones: No evidence of acute fracture or malalignment. There are mild degenerative changes. Other: None. IMPRESSION: 1. The thyroid gland demonstrates normal size, morphology and homogeneous density. No focal lesion identified. 2. No evidence of acute pathology in the neck. No mass lesion or soft tissue abnormality is identified. [facility]
[2019-08-06] MEDS ORDERED: DEXAMETHASONE 10 MG/ML VIAL PO STA (23:15)
[2019-08-06] MEDS ORDERED: CHERRY SYRUP 10 ML UDC PO ONE (23:15)
== END 2019-08-06 23:27 | disposition home or self-care (01) ==
LOC: ED 19:08
DX: J04.0 Acute laryngitis (principal)
CPT/HCPCS: 36415; 70490; 83690; 84439; 84481; 86376; 86800; 93005; 99284; A9270; 80053; 84443; 85025

== ENCOUNTER 2019-08-07 17:49 | Outpatient (CLI) | payer OTHER ==
--- NOTE | 2019-08-08 11:09 | MRI Report ---
Reason: PERONEAL TENDINITIS OF RT LOWER EXTREMITY Procedure Date: 08/07/2019 Accession Number: [id number] / [id number] Procedure: MRI - Ankle RT W/O CPT Code: Final Report FULL RESULT: EXAM: RIGHT ANKLE/HINDFOOT MRI WITHOUT CONTRAST EXAM DATE: 08/07/2019 06:57 PM. CLINICAL HISTORY: Peroneal tendinitis of right lower extremity. COMPARISON: ANKLE RT W/O 11/20/2017 8:00 AM. ANKLE 3 VIEW RT 05/21/2016 7:30 PM. TECHNIQUE: Multiplanar, multisequence T1-weighted and fluid-sensitive sequences of the ankle/hindfoot without contrast. Other: None. FINDINGS: Bones: Artifact from anchor distal fibula shaft. Longitudinal distal fibula intramedullary fixation screw. Artifact from anchor distal fibula or lateral malleolus. Only small anchor lateral malleolus right ankle radiographs 05/21/2016 and comparison MRI right ankle 11/20/2017. Articular Cartilage: Unremarkable. Ligaments: The anterior and posterior tibiofibular, anterior and posterior talofibular, and calcaneofibular ligaments are intact. The deep and superficial deltoid and spring ligaments are intact. Anterior Tendons: The tibialis anterior, extensor hallucis longus, and extensor digitorum longus tendons are unremarkable. Medial Tendons: The tibialis posterior, flexor digitorum longus, and flexor hallucis longus tendons are unremarkable. Lateral Tendons: The distal peroneus brevis and distal peroneus longus tendons are intact without signal abnormality. Evaluation of the peroneal tendons at the level of the lateral malleolus is compromised secondary to metallic artifact. On the sagittal STIR sequence there is peroneus longus tenosynovitis at the level of the lateral malleolus. Possible medial subluxation of the peroneus brevis tendon at the level of the lateral malleolus. Achilles Tendon: The Achilles tendon is unremarkable. Musculature: No edema or fatty atrophy. Other: No effusions. The contents of the sinus tarsi and tarsal tunnel are unremarkable. No plantar fasciitis. The subcutaneous tissues are unremarkable. IMPRESSION: 1. Negative for peroneal tendon tear. 2. Mild tenosynovitis peroneus longus tendon at the level of the lateral malleolus. RAD[facility]
== END 2019-08-07 17:50 | disposition home or self-care (01) ==
LOC: DI 17:49
DX: M76.71 Peroneal tendinitis, right leg (principal)

== ENCOUNTER 2019-10-12 17:17 | Emergency (ER) | payer OTHER ==
--- NOTE | 2019-10-12 18:54 | ED Physician Documentation ---
History of Present Illness - Stated complaint Stated Complaint: FLU LIKE SYMPTOMS - Chief complaint Chief Complaint: General - History obtained from History obtained from: Patient, Family - History of Present Illness Timing: Last night Pain level max: 7 Pain level now: 7 - Additonal information Additional information: 33-year-old female began feeling ill last night. High fevers at home. No vomiting. Diffuse body aches. Rhinorrhea, congestion and coughing. Denies any possibility of . She is using Motrin and Tylenol at home. Nothing makes it better or worse. No diarrhea. Review of Systems Ten Systems: 10 systems reviewed and negative Constitutional: reports: Fever, Chills Throat: denies: Sore throat Cardiac: denies: Chest pain / pressure Respiratory: reports: Cough. denies: Wheezing GI: denies: Vomiting, Diarrhea Skin: denies: Rash Musculoskeletal: denies: Neck pain, Back pain Neurologic: denies: Headache PD PAST MEDICAL HISTORY - Past Medical History Cardiovascular: Other Respiratory: Asthma, Shortness of breath Neuro: Migraines Endocrine/Autoimmune: None GI: None PIPE RECOVERY SPECIALIST: Endometriosis : None HEENT: None Psych: None Musculoskeletal: None Derm: None - Past Surgical History Past Surgical History: Yes General: Appendectomy Ortho: Other /PIPE RECOVERY SPECIALIST: Hysterectomy HEENT: Tonsil/Adenoidectomy - Present Medications Home Medications: Ambulatory Orders Medication Instructions Recorded Confirmed Estrogen 0.25 mg PO DAILY 12/15/16 06/18/17 Cyclobenzaprine [Flexeril] 10 mg PO TID PRN #20 tablet 06/30/19 Oxycodone HCl/Acetaminophen 1 - 2 each PO Q6H PRN #14 tablet 06/30/19 [Percocet 5-325 mg Tablet] Baloxavir Marboxil [Xofluza] 40 mg PO ONCE #1 tablet 10/12/19 - Allergies Allergies/Adverse Reactions: Allergies Allergy/AdvReac Type Severity Reaction Status Date / Time clarithromycin [From Biaxin] Allergy Rash Verified 10/12/19 17:38 ketorolac tromethamine * Allergy resp Verified 10/12/19 17:38 [From Toradol] difficulty metoclopramide HCl * Allergy Hives Verified 10/12/19 17:38 [From Reglan] morphine Allergy Hives Verified 10/12/19 17:38 naproxen Allergy resp dif Verified 01/11/20 17:38 - Social History Does the pt smoke?: No Smoking Status: Never smoker Does the pt drink ETOH?: Yes Does the pt have substance abuse?: No - Immunizations Immunizations are current?: Yes - POLST Patient has POLST: No PD ED PE NORMAL - Vitals Vital signs reviewed: Yes - General General: Alert and oriented X 3, No acute distress, Well developed/nourished - HEENT HEENT: Ears normal, Moist mucous membranes, Pharynx benign - Neck Neck: Supple, no meningeal sign - Cardiac Cardiac: RRR, Strong equal pulses - Respiratory Respiratory: No respiratory distress, Clear bilaterally - Abdomen Abdomen: Soft, Non tender, Non distended - Derm Derm: Warm and dry, No rash - Extremities Extremities: No edema - Neuro Neuro: Alert and oriented X 3 - Psych Psych: Normal mood, Normal affect Results - Vitals Vitals: Vital Signs - 24 hr 10/12/19 10/12/19 17:38 19:02 Temperature 37.9 C H 37.7 C H Heart Rate 105 H 97 Respiratory 14 18 Rate Blood Pressure 136/80 H 131/71 H O2 Saturation 98 97 Oxygen O2 Source Room air - Labs Labs: Laboratory Tests 10/12/19 18:00 Influenza A (Rapid) POSITIVE H Influenza B (Rapid) Negative PD MEDICAL DECISION MAKING - ED course Complexity details: reviewed results, considered differential, d/w patient, d/w family ED course: Patient is positive for influenza A. Discussed Tamiflu versus Xofluza versus usual care. She would like to try Xofluza. Patient is well-appearing, nontoxic. No hypoxia. No evidence of pneumonia. We will continue supportive care at home. Patient counseled regarding signs and symptoms for which I believe and urgent re-evaluation would be necessary. Patient with good understanding of and agreement to plan and is comfortable going home at this time This document was made in part using voice recognition software. While efforts are made to proofread this document, sound alike and grammatical errors may occur. Patient did not receive a flu shot this year Departure - Departure Disposition: Home, Self Care Clinical Impression: Influenza A Condition: Good Instructions: ED Flu Follow-Up: your,doctor in 1 week if not better [Other] Prescriptions: Baloxavir Marboxil [Xofluza] 40 mg PO ONCE #1 tablet Comments: Drink plenty of fluids at home. Return if you worsen. This will likely last approximately 5 days. Continue Motrin and Tylenol at home as well. Elderberry syrup may help as well Forms: Activity restrictions Discharge Date/Time: 10/12/19 19:04
[2019-10-12 19:03] VITALS: BP 131/71
== END 2019-10-12 19:04 | disposition home or self-care (01) ==
LOC: ED 17:17
DX: J10.1 Influenza due to other identified influenza virus with other respiratory manifestations (principal)
CPT/HCPCS: 87275; 87276; 99283; 99284